=== PATIENT | female | born 1930 | race Caucasian/White ===

== ENCOUNTER 2016-08-02 17:04 | Observation (INO) | payer OTHER ==
[~2016-08-02] VITALS: Ht 152.4 cm; Wt 87.7 kg
[~2016-08-02 17:04] MED LIST: ALTOPREV40 MG PO; AMLODIPINE BESY10 MG PO; AMLODIPINE BESYL5 MG PO; ASPIR 8181 M1 PO; BACTRIM,SEPT1 TABLET PO; BALANCED B COM1 EAC2 PO; DAILY VALUE1 EACH PO; DEPAKOTE ER500 MG PO; DEPAKOTE500 MG PO; DOCUSATE SODIU100 MG PO; FUROSEMIDE20 MG PO; HEPARIN SO5000 UNITS SC; IBUPROFEN400 MG PO; IMDUR30 MG PO; KEPPRA500 MG PO; KEPPRA750 MG PO; KLOR-CON-EF 2525 MEQ PO; KRISTALOSE10 GM PO; LEVOTHROID100 MCG PO; LISINOPRIL40 MG PO; LO-DOSE ASPIRIN81 M1 PO; LOVASTATIN40 MG PO; LOW DOSE ASPIRI81 M2 PO; METRO CREAM 0.745 GM TP; MILK OF MAGNESI10 ML PO; MULTIVITAMIN1 EAC2 PO; NIASPAN PO; NIASPAN500 MG PO; NORVASC5 MG PO; OMNICEF300 MG PO; PRAVACHOL40 MG PO; PRAVACHOL80 MG PO; PRESERVISION T1 EACH PO; PRINIVIL40 MG PO; SERTRALINE HCL50 MG PO; SYNTHROID100 MCG PO; TYLENOL REGULA325 MG PO; ZOLOFT50 MG PO
[2016-08-02 20:14] LABS: EOSINOPHIL (%) 0.5 % (0-5); EOSINOPHIL COUNT 0.1 K/uL (0-0.3); HEMATOCRIT 43.2 % (36.0-46.0); IMMATURE GRANULOCYTE (%) 0.3 % (0.0-0.7); IMMATURE GRANULOCYTE COUNT 0.3 K/uL; LYMPHOCYTE COUNT 1.4 K/uL (1.0-2.8); MCH 30.3 PG (29.0-34.0); MCHC 32.6 G/DL (30.0-36.0); MCV 92.9 FL (83-99); MEAN PLAT.VOLUME 11.1 uM^3 (9.5-12.4); MONOCYTE (%) 10.5 % (3-12); MONOCYTE COUNT 1.2 K/uL (0-0.8); NEUTROPHIL (%) 76.2 % (45-76); NEUTROPHIL COUNT 8.6 K/uL (1.8-6.4); PLATELET COUNT 164 K/uL (156-360); RBC DIS.WIDTH-CV 13.3 % (11.8-14.6); RBC DIS.WIDTH-SD 43.7 % (39-53); RED BLOOD COUNT 4.65 M/uL (3.80-5.20); WHITE BLOOD COUNT 11.3 K/uL (4.1-10.2)
[2016-08-02 20:25] LABS: CHLORIDE 109 mEq/L (99-109); POTASSIUM 3.7 mEq/L (3.7-5.4); SODIUM 149 mEq/L (136-147)
[2016-08-02 20:27] LABS: GLUCOSE 98 mg/dL (70-99)
[2016-08-02 20:28] LABS: ANION GAP 8 MEQ/L (2-14)
[2016-08-02 20:29] LABS: TOTAL BILIRUBIN 0.8 mg/dL (0.0-1.0)
[2016-08-02 20:31] LABS: ALKALINE PHOSPHATASE 59 IU/L (3-129); GFR ESTIMATE (CALCULATED) 41 mL/min/
[2016-08-02 20:32] LABS: UREA NITROGEN (BUN) 15 mg/dL (9-23)
[2016-08-02 20:34] LABS: CREATINE KINASE 608 IU/L (1-294); TROP-I INTERPRETATION NEGATIVE; TROPONIN-I 0.04 ng/mL (0.0-0.30)
[2016-08-02 21:42] LABS: INFLUENZA A VIRAL ANTIGEN NEGATIVE; INFLUENZA B VIRAL ANTIGEN NEGATIVE
[2016-08-03 00:30] VITALS: BP 173/77
[2016-08-03 05:26] VITALS: BP 182/72
[2016-08-03 07:56] VITALS: BP 186/84
[2016-08-03 09:12] LABS: CREATINE KINASE 536 IU/L (1-294); TOTAL CK 536 IU/L (1-294)
[2016-08-03 09:42] LABS: CK-MB 12.5 ng/mL (0.0-4.9)
[2016-08-03] MEDS ORDERED: NORVASC10 MG PO (10:51)
[2016-08-03] MEDS ORDERED: LO-DOSE ASPIRIN81 M1 PO (10:52)
[2016-08-03] MEDS ORDERED: LASIX20 MG PO (10:52)
[2016-08-03] MEDS ORDERED: LISINOPRIL40 MG PO (10:53)
[2016-08-03] MEDS ORDERED: LOVASTATIN40 MG PO (10:54)
[2016-08-03] MEDS ORDERED: SERTRALINE HCL50 MG PO (10:54)
[2016-08-03] MEDS ORDERED: SYNTHROID100 MCG PO (10:55)
[2016-08-03] MEDS ORDERED: SOLARAZE 3% GEL50 GM TP ×2 (10:57→10:58)
[2016-08-03] MEDS ORDERED: KEPPRA750 MG PO (11:02)
[2016-08-03 13:22] VITALS: BP 184/77
[2016-08-03 16:20] VITALS: BP 161/73
[2016-08-03 18:12] LABS: CREATINE KINASE 462 IU/L (1-294); TOTAL CK 462 IU/L (1-294)
[2016-08-03 18:42] LABS: CK-MB 12.5 ng/mL (0.0-4.9)
[2016-08-03 20:00] VITALS: BP 122/60
[2016-08-03 20:07] LABS: ADD MIUA? NO; BILIRUBIN NEGATIVE; BLOOD NEGATIVE; COLOR STRAW ((YELLOW)); GLUCOSE (STRIP) NEGATIVE; KETONES NEGATIVE; LEUKOCYTES NEGATIVE; NITRITE NEGATIVE; PROTEIN (STRIP) NEGATIVE; SPECIFIC GRAVITY 1.009 (1.000-1.030); UCUL ADDED? NO; UROBILINOGEN 0.2 MG/DL (0.2-1.0)
[2016-08-04] VITALS: BP 132/60
[2016-08-04 04:16] VITALS: BP 138/75
[2016-08-04 07:32] LABS: HEMATOCRIT 38.3 % (36.0-46.0); MCH 30.3 PG (29.0-34.0); MCHC 31.6 G/DL (30.0-36.0); MCV 95.8 FL (83-99); MEAN PLAT.VOLUME 11.6 uM^3 (9.5-12.4); PLATELET COUNT 147 K/uL (156-360); RBC DIS.WIDTH-CV 13.6 % (11.8-14.6); RBC DIS.WIDTH-SD 47.7 % (39-53)
[2016-08-04 07:33] LABS: WHITE BLOOD COUNT 7.6 K/uL (4.1-10.2)
[2016-08-04 07:35] LABS: ANION GAP 6 MEQ/L (2-14); CHLORIDE 108 MEQ/L (99-109); GFR ESTIMATE (CALCULATED) 56 mL/min/; GLUCOSE 110 mg/dL (70-99); MAGNESIUM 1.5 mg/dl (1.3-2.7); POTASSIUM 3.5 MEQ/L (3.7-5.4); SAMPLE HEMOLYSIS CHECK 0; SAMPLE ICTERIC CHECK 0; SAMPLE LIPEMIA CHECK 0; SODIUM 143 MEQ/L (136-147); UREA NITROGEN (BUN) 17 mg/dL (9-23)
[2016-08-04 07:56] VITALS: BP 191/85
[2016-08-04 12:44] VITALS: BP 138/69
[2016-08-04 16:32] VITALS: BP 175/75
[2016-08-04 21:29] VITALS: BP 179/86
[2016-08-05] VITALS (7 sets, daily range): BP systolic 123–189; BP diastolic 58–86
[2016-08-05 06:39] LABS: EOSINOPHIL COUNT 0.3 K/uL (0-0.3); HEMATOCRIT 39.8 % (36.0-46.0); IMMATURE GRANULOCYTE (%) 0.4 % (0.0-0.7); LYMPHOCYTE COUNT 1.6 K/uL (1.0-2.8); MCH 30.2 PG (29.0-34.0); MCHC 31.7 G/DL (30.0-36.0); MCV 95.4 FL (83-99); MONOCYTE (%) 7.3 % (3-12); MONOCYTE COUNT 0.6 K/uL (0-0.8); NEUTROPHIL (%) 69.3 % (45-76); NEUTROPHIL COUNT 5.7 K/uL (1.8-6.4); PLATELET COUNT 156 K/uL (156-360); RBC DIS.WIDTH-CV 13.5 % (11.8-14.6); RBC DIS.WIDTH-SD 46.8 % (39-53); RED BLOOD COUNT 4.17 M/uL (3.80-5.20); WHITE BLOOD COUNT 8.2 K/uL (4.1-10.2)
[2016-08-05 07:02] LABS: ALKALINE PHOSPHATASE 46 IU/L (3-129); ANION GAP 8 MEQ/L (2-14); CHLORIDE 108 MEQ/L (99-109); CREATINE KINASE 178 IU/L (1-294); GFR ESTIMATE (CALCULATED) > 59 mL/min/; GLUCOSE 105 mg/dL (70-99); POTASSIUM 3.8 MEQ/L (3.7-5.4); SAMPLE HEMOLYSIS CHECK 0; SAMPLE ICTERIC CHECK 0; SAMPLE LIPEMIA CHECK 0; SODIUM 143 MEQ/L (136-147); TOTAL BILIRUBIN 0.3 MG/DL (0.0-1.0); UREA NITROGEN (BUN) 16 mg/dL (9-23)
[2016-08-06 00:07] VITALS: BP 162/69
[2016-08-06 04:38] VITALS: BP 175/78
[2016-08-06 07:41] VITALS: BP 189/82
[2016-08-06 11:10] VITALS: BP 144/63
== END 2016-08-06 13:12 ==
LOC: EME → EDBD 17:04 → EDOF 22:24 → 5WEST 22:24 → EDOF 22:24 → 5WEST 23:54
PROVIDERS: Emergency Medicine; Hospitalist; Internal Medicine; Physician Assistant
DX: M62.82 Rhabdomyolysis (principal); W19.XXXA Unspecified fall, initial encounter; Z86.69 Personal history of other diseases of the nervous system and sense organs; I10 Essential (primary) hypertension; G89.29 Other chronic pain; M54.9 Dorsalgia, unspecified; E78.5 Hyperlipidemia, unspecified; E03.9 Hypothyroidism, unspecified; Z98.1 Arthrodesis status; E66.01 Morbid (severe) obesity due to excess calories; Z68.37 Body mass index [BMI] 37.0-37.9, adult; Z87.891 Personal history of nicotine dependence; Z80.8 Family history of malignant neoplasm of other organs or systems; Z80.49 Family history of malignant neoplasm of other genital organs; Z91.013 Allergy to seafood; Z91.041 Radiographic dye allergy status; Z88.2 Allergy status to sulfonamides; Z88.5 Allergy status to narcotic agent; Z88.8 Allergy status to other drugs, medicaments and biological substances; Z88.4 Allergy status to anesthetic agent
CPT/HCPCS: 70450; 71010; 72100; 80048; 80053; 81003; 82550; 82550 91; 82553; 83605; 83735; 84484; 85025; 85027; 87493; 87502; 93005; 94799; 97530 GP; 99281; 99285; G0378; G8978 GP CJ; G8978 GP CK; G8979 CJ; G8980 GP CL; G8987 CK; G8988 GO CJ; G8989 GO CL; J2405; J3475; J7030

== ENCOUNTER 2016-12-01 15:45 | Inpatient (IN) | payer OTHER ==
[~2016-12-01] VITALS: Ht 152.4 cm; Wt 83.1 kg
[~2016-12-01 15:45] MED LIST changes: +LASIX20 MG PO; +NORVASC10 MG PO; +SOLARAZE 3% GEL50 GM TP
[2016-12-01 17:32] LABS: EOSINOPHIL (%) 2.1 % (0-5); EOSINOPHIL COUNT 0.2 K/uL (0-0.3); HEMATOCRIT 40.4 % (36.0-46.0); IMMATURE GRANULOCYTE (%) 0.4 % (0.0-0.7); INSTRUMENT ABS NEUTROPHIL CT 5.9 K/uL; LYMPHOCYTE COUNT 1.5 K/uL (1.0-2.8); MCH 29.3 PG (29.0-34.0); MCHC 31.9 G/DL (30.0-36.0); MCV 91.8 FL (83-99); MEAN PLAT.VOLUME 10.8 uM^3 (9.5-12.4); MONOCYTE COUNT 0.9 K/uL (0-0.8); NEUTROPHIL (%) 68.8 % (45-76); NEUTROPHIL COUNT 5.9 K/uL (1.8-6.4); PLATELET COUNT 166 K/uL (156-360); RBC DIS.WIDTH-CV 13.1 % (11.8-14.6); RBC DIS.WIDTH-SD 44.5 % (39-53); WHITE BLOOD COUNT 8.5 K/uL (4.1-10.2)
[2016-12-01 17:42] LABS: CHLORIDE 107 mEq/L (99-109); POTASSIUM 4.2 mEq/L (3.7-5.4); SODIUM 144 mEq/L (136-147)
[2016-12-01 17:43] LABS: GLUCOSE 101 mg/dL (70-99)
[2016-12-01 17:45] LABS: ANION GAP 12 MEQ/L (2-14)
[2016-12-01 17:47] LABS: GFR ESTIMATE (CALCULATED) > 59 mL/min/; SERUM ETHYL ALCOHOL < 10 mg/dL
[2016-12-01 17:48] LABS: UREA NITROGEN (BUN) 17 mg/dL (9-23)
[2016-12-01 19:24] LABS: ADD MIUA? NO; BILIRUBIN NEGATIVE; BLOOD NEGATIVE; COLOR YELLOW ((YELLOW)); GLUCOSE (STRIP) NEGATIVE; KETONES NEGATIVE; LEUKOCYTES NEGATIVE; NITRITE NEGATIVE; PROTEIN (STRIP) NEGATIVE; SPECIFIC GRAVITY 1.015 (1.000-1.030); UCUL ADDED? NO; UROBILINOGEN 0.2 MG/DL (0.2-1.0)
[2016-12-01 19:34] LABS: THC CANNABINOIDS NEGATIVE (50 ng/mL)
[2016-12-01 19:35] LABS: AMPHETAMINE NEGATIVE (500 ng/mL); BARBITURATES NEGATIVE (200 ng/mL); BENZODIAZEPINES NEGATIVE (150 ng/mL); COCAINE NEGATIVE (150 ng/mL); INTERNAL CONTROLS VALID? YES; METHADONE NEGATIVE (200 ng/mL); METHAMPHETAMINE NEGATIVE (500 ng/mL); OPIATES (MORPHINE) NEGATIVE (100 ng/mL); OXYCODONE NEGATIVE (100 ng/mL); PHENCYCLIDINE NEGATIVE (25 ng/mL); PROPOXYPHENE NEGATIVE (300 ng/mL); TRICYCLIC ANTIDEPRESSANTS NEGATIVE (300 ng/mL)
[2016-12-02] MEDS ORDERED: NAMENDA5 MG PO (12:14)
[2016-12-02 14:08] VITALS: BP 177/74
[2016-12-02 14:16] VITALS: BP 177/74
[2016-12-02 15:36] VITALS: BP 175/76
[2016-12-02 19:35] VITALS: BP 141/65
[2016-12-03 07:50] VITALS: BP 155/66
[2016-12-03 15:28] VITALS: BP 122/56
[2016-12-04 07:57] VITALS: BP 140/65
[2016-12-04 15:18] VITALS: BP 175/70
[2016-12-04 21:14] VITALS: BP 187/87
[2016-12-05 08:00] VITALS: BP 133/61
[2016-12-05 15:27] VITALS: BP 126/67
[2016-12-06 07:56] VITALS: BP 171/72
[2016-12-06 10:10] VITALS: BP 162/69
[2016-12-06 16:29] VITALS: BP 149/67
[2016-12-07 07:44] VITALS: BP 127/61
[2016-12-07 16:01] VITALS: BP 177/79
[2016-12-07 22:00] VITALS: BP 169/76
[2016-12-08 07:46] VITALS: BP 152/68
[2016-12-08] MEDS ORDERED: NAMENDA10 MG PO (10:02)
[2016-12-08] MEDS ORDERED: CYANOCOBALAM1000 MCG PO (10:02)
[2016-12-08] MEDS ORDERED: NAMENDA5 MG PO (10:02)
[2016-12-08] MEDS ORDERED: RISPERIDONE0.5 MG PO (10:03)
== END 2016-12-08 12:57 | disposition home or self-care (01) | DRG 884 ==
LOC: EME 15:45 → EDOF 12-02 10:04 → 1WEST 12-02 10:04
PROVIDERS: Emergency Medicine
DX: F01.51 Vascular dementia, unspecified severity, with behavioral disturbance (principal); F02.81 Dementia in other diseases classified elsewhere, unspecified severity, with behavioral disturbance; G30.9 Alzheimer's disease, unspecified; R45.851 Suicidal ideations; I10 Essential (primary) hypertension; E78.5 Hyperlipidemia, unspecified; E03.9 Hypothyroidism, unspecified; E78.00 Pure hypercholesterolemia, unspecified; Z99.3 Dependence on wheelchair; R56.9 Unspecified convulsions; Z86.73 Personal history of transient ischemic attack (TIA), and cerebral infarction without residual deficits; Z87.891 Personal history of nicotine dependence; Z95.1 Presence of aortocoronary bypass graft; F32.9 Major depressive disorder, single episode, unspecified; H91.92 Unspecified hearing loss, left ear
CPT/HCPCS: 70450; 80048; 81003; 82607; 82746; 84443; 85025; 90839; 93005; 97150 GO; 97165 GO; 97530 GO; 99281; 99285; G0480

== ENCOUNTER 2016-12-08 21:39 | Inpatient (IN) | payer OTHER ==
[~2016-12-08] VITALS: Ht 152.4 cm; Wt 52.5 kg
[~2016-12-08 21:39] MED LIST changes: +CYANOCOBALAM1000 MCG PO; +NAMENDA10 MG PO; +NAMENDA5 MG PO; +RISPERIDONE0.5 MG PO
[2016-12-08 23:47] LABS: BASOPHIL COUNT 0.1 K/uL (0-0.1); EOSINOPHIL (%) 2.1 % (0-5); EOSINOPHIL COUNT 0.2 K/uL (0-0.3); HEMATOCRIT 39.7 % (36.0-46.0); IMMATURE GRANULOCYTE (%) 0.5 % (0.0-0.7); INSTRUMENT ABS NEUTROPHIL CT 5.1 K/uL; LYMPHOCYTE COUNT 1.8 K/uL (1.0-2.8); MCH 28.9 PG (29.0-34.0); MCHC 31.5 G/DL (30.0-36.0); MCV 91.7 FL (83-99); MEAN PLAT.VOLUME 11.1 uM^3 (9.5-12.4); MONOCYTE (%) 12.3 % (3-12); NEUTROPHIL (%) 62.5 % (45-76); NEUTROPHIL COUNT 5.1 K/uL (1.8-6.4); PLATELET COUNT 173 K/uL (156-360); RBC DIS.WIDTH-CV 13.1 % (11.8-14.6); RED BLOOD COUNT 4.33 M/uL (3.80-5.20); WHITE BLOOD COUNT 8.1 K/uL (4.1-10.2)
[2016-12-08 23:55] LABS: CHLORIDE 105 mEq/L (99-109); POTASSIUM 4.2 mEq/L (3.7-5.4); SODIUM 143 mEq/L (136-147)
[2016-12-08 23:57] LABS: GLUCOSE 111 mg/dL (70-99)
[2016-12-08 23:58] LABS: ANION GAP 8 MEQ/L (2-14)
[2016-12-09] LABS: SERUM ETHYL ALCOHOL < 10 mg/dL
[2016-12-09 00:01] LABS: GFR ESTIMATE (CALCULATED) 45 mL/min/
[2016-12-09 00:02] LABS: UREA NITROGEN (BUN) 33 mg/dL (9-23)
[2016-12-09 01:18] VITALS: BP 165/74
[2016-12-09 01:22] VITALS: BP 165/74
[2016-12-09 07:47] VITALS: BP 141/63
[2016-12-09 15:21] VITALS: BP 161/70
[2016-12-10 07:34] VITALS: BP 146/67
[2016-12-10 15:37] VITALS: BP 131/60
[2016-12-11 04:38] VITALS: BP 144/61
[2016-12-11 08:18] VITALS: BP 141/67
[2016-12-11 11:00] LABS: HEMATOCRIT 43.8 % (36.0-46.0); MCH 29.2 PG (29.0-34.0); MCHC 31.3 G/DL (30.0-36.0); MCV 93.4 FL (83-99); PLATELET COUNT 189 K/uL (156-360); RBC DIS.WIDTH-CV 13.3 % (11.8-14.6); RBC DIS.WIDTH-SD 45.5 % (39-53); RED BLOOD COUNT 4.69 M/uL (3.80-5.20); WHITE BLOOD COUNT 9.1 K/uL (4.1-10.2)
[2016-12-11 11:07] LABS: CHLORIDE 104 mEq/L (99-109); POTASSIUM 4.2 mEq/L (3.7-5.4); SODIUM 144 mEq/L (136-147)
[2016-12-11 11:10] LABS: ANION GAP 12 MEQ/L (2-14)
[2016-12-11 11:12] LABS: GFR ESTIMATE (CALCULATED) 45 mL/min/
[2016-12-11 11:13] LABS: UREA NITROGEN (BUN) 41 mg/dL (9-23)
[2016-12-11 11:18] LABS: TROP-I INTERPRETATION NEGATIVE; TROPONIN-I < 0.01 ng/mL (0.0-0.30)
[2016-12-11 11:27] LABS: GLUCOSE 221 mg/dL (70-99)
[2016-12-11 15:39] VITALS: BP 130/61
[2016-12-12 01:35] LABS: TROP-I INTERPRETATION NEGATIVE; TROPONIN-I < 0.01 ng/mL (0.0-0.30)
[2016-12-12 07:31] VITALS: BP 118/58
[2016-12-12 07:31] LABS: TROP-I INTERPRETATION NEGATIVE; TROPONIN-I 0.01 ng/mL (0.0-0.30)
[2016-12-12 07:37] LABS: HDL CHOLESTEROL 35 MG/DL (Desirable>=50); LDL CHOLESTEROL 54 mg/dL (Desirable<100); NON-HDL CHOLESTEROL 83 mg/dL (Desirable<160); TOTAL CHOLESTEROL 118 mg/dL (Desirable<200); TRIGLYCERIDES 143 MG/DL (Normal: <150)
[2016-12-12 15:29] VITALS: BP 138/67
[2016-12-12] MEDS ORDERED: RISPERIDONE1 MG PO (16:10)
[2016-12-12] MEDS ORDERED: NAMENDA10 MG PO (16:10)
[2016-12-12] MEDS ORDERED: FAMOTIDINE20 MG PO (16:12)
[2016-12-12] MEDS ORDERED: ASPIR-LOW81 MG PO (16:12)
[2016-12-12] MEDS ORDERED: SERTRALINE HCL100 MG PO (16:13)
== END 2016-12-12 18:34 | DRG 57 ==
LOC: EME → EDBD 21:39 → EME 21:39 → EDOF 23:35 → 1WEST 23:35
PROVIDERS: Emergency Medicine; Hospitalist
DX: G30.9 Alzheimer's disease, unspecified (principal); F02.81 Dementia in other diseases classified elsewhere, unspecified severity, with behavioral disturbance; F01.51 Vascular dementia, unspecified severity, with behavioral disturbance; R45.851 Suicidal ideations; F32.9 Major depressive disorder, single episode, unspecified; F22 Delusional disorders; G40.909 Epilepsy, unspecified, not intractable, without status epilepticus; E03.9 Hypothyroidism, unspecified; E78.5 Hyperlipidemia, unspecified; I10 Essential (primary) hypertension; R07.89 Other chest pain; G62.9 Polyneuropathy, unspecified; R32 Unspecified urinary incontinence; K21.9 Gastro-esophageal reflux disease without esophagitis; K59.00 Constipation, unspecified; Z86.73 Personal history of transient ischemic attack (TIA), and cerebral infarction without residual deficits; Z87.891 Personal history of nicotine dependence; Z95.1 Presence of aortocoronary bypass graft
CPT/HCPCS: 71020; 80048; 80061; 84484; 85025; 85027; 90839; 93005; 97150 GO; 97165 GO; 97530 GO; 99281; 99284; G0480; J1650

== ENCOUNTER 2017-01-16 04:59 | Emergency (ER) | payer OTHER ==
[~2017-01-16] VITALS: Ht 152.4 cm; Wt 86.4 kg
[~2017-01-16 04:59] MED LIST changes: +ASPIR-LOW81 MG PO; +FAMOTIDINE20 MG PO; +RISPERIDONE1 MG PO; +SERTRALINE HCL100 MG PO
[2017-01-16 07:21] VITALS: BP 126/64
== END 2017-01-16 07:29 | disposition home or self-care (01) ==
LOC: EME 04:59
DX: M54.9 Dorsalgia, unspecified (principal); W06.XXXA Fall from bed, initial encounter; E03.9 Hypothyroidism, unspecified; I10 Essential (primary) hypertension; E78.5 Hyperlipidemia, unspecified; I63.9 Cerebral infarction, unspecified; Z86.73 Personal history of transient ischemic attack (TIA), and cerebral infarction without residual deficits; Z95.1 Presence of aortocoronary bypass graft; Z87.891 Personal history of nicotine dependence
CPT/HCPCS: 70450; 72131; 74176; 99281; 99284

== ENCOUNTER 2017-08-21 03:03 | Inpatient (IN) | payer OTHER ==
[~2017-08-21] VITALS: Ht 152.4 cm; Wt 94.6 kg
[2017-08-21] VITALS (16 sets, daily range): BP systolic 95–153; BP diastolic 42–70
[~2017-08-21 03:03] MED LIST changes: +LISINOPRIL20 MG PO
[2017-08-21 04:16] LABS: HEMATOCRIT 42.7 % (36.0-46.0); HEMOGLOBIN 13.6 G/DL (11.9-15.5); MCH 30.1 PG (29.0-34.0); MCHC 31.9 G/DL (30.0-36.0); MCV 94.5 FL (83-99); PLATELET COUNT 149 K/uL (156-360); RBC DIS.WIDTH-CV 13.7 % (11.8-14.6); RBC DIS.WIDTH-SD 47.8 % (39-53); RED BLOOD COUNT 4.52 M/uL (3.80-5.20); WHITE BLOOD COUNT 7.6 K/uL (4.1-10.2)
[2017-08-21 04:25] LABS: CHLORIDE 103 mEq/L (99-109); POTASSIUM 4.7 mEq/L (3.7-5.4); SODIUM 140 mEq/L (136-147)
[2017-08-21 04:26] LABS: GLUCOSE 129 mg/dL (70-99)
[2017-08-21 04:30] LABS: CREATININE 1.4 mg/dL (0.6-1.3); GFR ESTIMATE (CALCULATED) 38 mL/min/
[2017-08-21 04:31] LABS: UREA NITROGEN (BUN) 34 mg/dL (9-23)
[2017-08-21 04:38] LABS: TROP-I INTERPRETATION NEGATIVE; TROPONIN-I 0.02 ng/mL (0.0-0.30)
[2017-08-21 05:38] LABS: BASE EXCESS 5.3 mEq/L (-3 to +3); BICARBONATE 33.2 mEq/L (22-26); CARBOXY HGB 2.2 % (0-5); COMMENTS - BLOOD GASES A+C+; DEVICE NC; METHEMOGLOBIN 0.9 % (0-1.5); O2 FLOW 3 L/MIN; PCO2 63 mm Hg (35-45); PO2 68 mm Hg (80-100); SITE RR; pH 7.33 (7.35-7.45)
[2017-08-21 06:01] LABS: APPEARANCE CLOUDY ((CLEAR)); BILIRUBIN SMALL; BLOOD NEGATIVE; COLOR AMBER ((YELLOW)); GLUCOSE (STRIP) NEGATIVE; KETONES NEGATIVE; LEUKOCYTES MODERATE; NITRITE NEGATIVE; PROTEIN (STRIP) 30; SPECIFIC GRAVITY 1.025 (1.000-1.030)
[2017-08-21 06:21] LABS: EPITHELIAL CELLS 4+ /HPF
[2017-08-21 06:32] LABS: HYALINE CASTS 0-5 /LPF; RED BLOOD CELLS 0-5 /HPF (0-5); UCUL ADDED? YES
[2017-08-21 06:34] LABS: MUCUS 1+ /LPF
[2017-08-21 06:35] LABS: BACTERIA 3+ /HPF
[2017-08-21 06:39] LABS: CALCIUM OXALATE CRYSTALS 1+ /HPF
[2017-08-21 11:10] LABS: BASE EXCESS 2.7 mEq/L (-3 to +3); BICARBONATE 31.5 mEq/L (22-26); CARBOXY HGB 1.8 % (0-5); METHEMOGLOBIN 1.4 % (0-1.5); PCO2 67 mm Hg (35-45)
[2017-08-21 11:11] LABS: PO2 110 mm Hg (80-100)
[2017-08-21 11:12] LABS: COMMENTS - BLOOD GASES +C; DEVICE NC; O2 FLOW 6 L/MIN; SITE RR +A; TOTAL RESP RATE 20 resp/min; pH 7.28 (7.35-7.45)
[2017-08-21] MEDS ORDERED: ASPIR 8181 M1 PO (21:23)
[2017-08-21] MEDS ORDERED: CYANOCOBALAM1000 MCG PO (21:24)
[2017-08-21] MEDS ORDERED: LIDOCARE1 EACH TP (21:28)
[2017-08-21] MEDS ORDERED: METOPROLOL SUCC25 MG PO (21:30)
[2017-08-21] MEDS ORDERED: RISPERDAL1 MG PO (21:31)
[2017-08-21] MEDS ORDERED: ZOLOFT100 MG PO (21:32)
[2017-08-21] MEDS ORDERED: TYLENOL REGULA325 MG PO ×2 (21:33→21:46)
[2017-08-21] MEDS ORDERED: NAMENDA10 MG PO (21:35)
[2017-08-21] MEDS ORDERED: SENNA-DOCUSATE1 EAC1 PO (21:36)
[2017-08-21] MEDS ORDERED: DUONEB 2.5-0.5 M3 ML AEROSOL (21:39)
[2017-08-21] MEDS ORDERED: NAPROSYN250 MG PO (21:42)
[2017-08-21] MEDS ORDERED: ZOFRAN4 MG PO (21:48)
[2017-08-22] VITALS (17 sets, daily range): BP systolic 123–176; BP diastolic 46–83
[2017-08-22 06:41] LABS: HEMATOCRIT 42.4 % (36.0-46.0); HEMOGLOBIN 13.3 G/DL (11.9-15.5); MCH 29.7 PG (29.0-34.0); MCHC 31.4 G/DL (30.0-36.0); MCV 94.6 FL (83-99); PLATELET COUNT 132 K/uL (156-360); RBC DIS.WIDTH-CV 13.2 % (11.8-14.6); RBC DIS.WIDTH-SD 45.8 % (39-53); RED BLOOD COUNT 4.48 M/uL (3.80-5.20); WHITE BLOOD COUNT 4.3 K/uL (4.1-10.2)
[2017-08-22 07:12] LABS: CHLORIDE 106 MEQ/L (99-109); GFR ESTIMATE (CALCULATED) 56 mL/min/; GLUCOSE 172 mg/dL (70-99); POTASSIUM 4.3 MEQ/L (3.7-5.4); SODIUM 143 MEQ/L (136-147); UREA NITROGEN (BUN) 34 mg/dL (9-23)
[2017-08-23] VITALS: BP 126/49
[2017-08-23 01:05] VITALS: BP 150/67
[2017-08-23 07:05] VITALS: BP 137/66
[2017-08-23 15:00] VITALS: BP 127/59
[2017-08-23 23:52] VITALS: BP 137/94
[2017-08-24 07:11] LABS: CHLORIDE 105 MEQ/L (99-109); CREATININE 1.1 MG/DL (0.6-1.3); GFR ESTIMATE (CALCULATED) 50 mL/min/; GLUCOSE 214 mg/dL (70-99); POTASSIUM 4.7 MEQ/L (3.7-5.4); SODIUM 145 MEQ/L (136-147); UREA NITROGEN (BUN) 37 mg/dL (9-23)
[2017-08-24 08:05] VITALS: BP 144/69
[2017-08-24 16:02] VITALS: BP 136/63
[2017-08-24 23:17] VITALS: BP 176/82
[2017-08-25 07:26] LABS: CHLORIDE 103 MEQ/L (99-109); CREATININE 0.9 MG/DL (0.6-1.3); GFR ESTIMATE (CALCULATED) > 59 mL/min/; GLUCOSE 176 mg/dL (70-99); POTASSIUM 4.8 MEQ/L (3.7-5.4); SODIUM 143 MEQ/L (136-147); UREA NITROGEN (BUN) 34 mg/dL (9-23)
[2017-08-25 07:52] VITALS: BP 142/81
[2017-08-25] MEDS ORDERED: CEFDINIR300 MG PO (14:18)
[2017-08-25] MEDS ORDERED: AZITHROMYCIN250 MG PO (14:20)
[2017-08-25] MEDS ORDERED: MEDROL DOSEPAK4 MG PO (14:23)
[2017-08-25] MEDS ORDERED: FAMOTIDINE20 MG PO (14:24)
[2017-08-25 15:44] VITALS: BP 177/70
[2017-08-25 23:46] VITALS: BP 183/73
[2017-08-26 07:02] VITALS: BP 139/83
[2017-08-26 15:09] VITALS: BP 133/79
== END 2017-08-26 20:42 | DRG 189 ==
LOC: EME 03:03 → 4WEST 08:14 → 5SOUTH 08:14 → EDOF 08:14 → ENRESERV 08:18 → CANRESERV 08:18 → ENRESERV 08:33 → EDOF 08:34 → ENRESERV 09:07 → 4EAST 09:44 → ENRESERV 11:30 → 4WEST 12:44 → ENRESERV 08-22 18:41 → 5SOUTH 08-23 01:04
PROVIDERS: Emergency Medicine; Hospitalist; Internal Medicine
DX: J96.01 Acute respiratory failure with hypoxia (principal); G93.41 Metabolic encephalopathy; E87.2 Acidosis; F05 Delirium due to known physiological condition; J44.0 Chronic obstructive pulmonary disease with (acute) lower respiratory infection; J44.1 Chronic obstructive pulmonary disease with (acute) exacerbation; J98.11 Atelectasis; N39.0 Urinary tract infection, site not specified; Z68.41 Body mass index [BMI] 40.0-44.9, adult; F33.9 Major depressive disorder, recurrent, unspecified; J96.02 Acute respiratory failure with hypercapnia; E03.9 Hypothyroidism, unspecified; E78.5 Hyperlipidemia, unspecified; G30.9 Alzheimer's disease, unspecified; F02.80 Dementia in other diseases classified elsewhere, unspecified severity, without behavioral disturbance, psychotic disturbance, mood disturbance, and anxiety; G40.909 Epilepsy, unspecified, not intractable, without status epilepticus; I13.10 Hypertensive heart and chronic kidney disease without heart failure, with stage 1 through stage 4 chronic kidney disease, or unspecified chronic kidney disease; N18.3 Chronic kidney disease, stage 3 (moderate); J20.9 Acute bronchitis, unspecified; N27.1 Small kidney, bilateral; N28.1 Cyst of kidney, acquired; I87.8 Other specified disorders of veins; E66.9 Obesity, unspecified; G62.9 Polyneuropathy, unspecified; I35.1 Nonrheumatic aortic (valve) insufficiency; Z95.1 Presence of aortocoronary bypass graft; Z90.710 Acquired absence of both cervix and uterus; Z87.891 Personal history of nicotine dependence; Z86.73 Personal history of transient ischemic attack (TIA), and cerebral infarction without residual deficits; Z91.041 Radiographic dye allergy status; Z91.013 Allergy to seafood; Z88.5 Allergy status to narcotic agent; Z80.8 Family history of malignant neoplasm of other organs or systems
CPT/HCPCS: 36600; 71045; 71250; 76770; 80048; 81003; 82533 91; 82803; 83605; 83880; 84443; 84484; 85027; 87040; 87086; 87641; 93005; 93306; 94002; 94640; 94640 76; 94760; 94799; 97530 GP; 99202; 99281; 99285; J0456; J0696; J1650; J1940; J2920; J2930; J7030